=== PATIENT | male | born 1980 | race Two or more races ===

== ENCOUNTER 2025-05-07 09:09 | Emergency (ER) | payer OTHER ==
[~2025-05-07] VITALS: Ht 172.7 cm; Wt 96.2 kg
[2025-05-07 09:25] VITALS: BP 151/93; O2SAT 98
[2025-05-07] MEDS ORDERED: NORFLEX100MG PO (09:57)
[2025-05-07] MEDS ORDERED: DICLOFENAC SODI75 MG PO (09:57)
[2025-05-07] MEDS ORDERED: DEXAMETHASONE SODIUM PHOSPHATE 4 MG/ML VIAL IM ONE (10:00)
[2025-05-07] MEDS ORDERED: ORPHENADRINE CITRATE 30 MG/ML AMPUL ONE (10:00)
[2025-05-07] MEDS ORDERED: ORPHENADRINE CITRATE 30 MG/ML AMPUL IM ONE (10:00)
[2025-05-07] MEDS ORDERED: KETOROLAC TROMETHAMINE 60 MG VIAL IM ONE ×2 (10:00→10:01)
[2025-05-07] MEDS ORDERED: DEXAMETHASONE SODIUM PHOSPHATE 4 MG/ML VIAL ONE (10:01)
== END 2025-05-07 10:19 | disposition home or self-care (01) ==
LOC: ER 09:09
DX: M54.50 Low back pain, unspecified (principal); M62.830 Muscle spasm of back